=== PATIENT | female | born 1990 | race African-American/Black ===

== ENCOUNTER 2022-05-22 16:19 | Inpatient (IN) ==
[2022-05-22] MEDS ORDERED: OXYTOCIN/LR 20 UNIT/1,000 ML BAG IV ONE (17:09)
[2022-05-22] MEDS ORDERED: CARBOPROST TROMETHAMINE 250 MCG/ML AMP IM PRN (17:09)
[2022-05-22] MEDS ORDERED: ONDANSETRON 4 MG/2 ML VIAL IV PRN (17:09)
[2022-05-22] MEDS ORDERED: miSOPROStoL 200 MCG TABLET RECTAL PRN (17:09)
[2022-05-22] MEDS ORDERED: METHYLERGONOVINE 0.2 MG/1 ML AMP IM PRN (17:09)
[2022-05-22] MEDS ORDERED: MEPERIDINE 50 MG/1 ML VIAL IV PRN (17:09)
[2022-05-22] MEDS ORDERED: BUTORPHANOL 2 MG/ML VIAL IV PRN (17:09)
[2022-05-22] MEDS ORDERED: TRANEXAMIC ACID 1,000 MG in SODIUM CHLORIDE 0.9% 100 ML IV PRN (17:09)
[2022-05-22 17:26] LABS: Basophils % 0.3 % (0.0-0.8); Eosinophils # 0.1 10*3/uL (0.0-0.87); Eosinophils % 0.8 % (0.00-10.9); Hematocrit 37.3 VOL% (35.7-47.0); Hemoglobin 11.8 GM/DL (12.0-16.0); Immature Granulocytes % 0.3 %; Immature Granulocytes Absolute 0.02 #; Lymphocytes # 2.1 10*3/uL (1.4-4.0); Lymphocytes % 28.9 % (21.3-54.2); Mean Corpuscular HGB Conc 31.6 GM/DL (32-36); Mean Corpuscular Volume 85.2 FL (87-102); Mean Platelet Volume 11.2 FL (9.6-12.0); Monocytes # 0.7 10*3/uL (0.11-0.8); Monocytes % 9.3 % (1.7-12.7); Neutrophils % 60.4 % (38.7-73.9); Platelet Count 252 T/CUMM (130-400); Red Blood Count 4.38 MC/CUMM (3.8-5.5); Red Cell Distribution Width 14.3 % (9.3-17.3); White Blood Count 7.2 T/CUMM (4-12)
[2022-05-22 17:28] LABS: Bilirubin,Urine Negative (Negative); Blood, Urine Negative (Negative); Glucose,Urine (UA) Negative (Negative); Ketones,Urine Negative (Negative); Nitrite,Urine Negative (Negative); Protein,Urine Negative (Negative); Urine Appearance Clear (Clear); Urine Color Yellow (Yellow); Urine Specific Gravity 1.015 (1.001-1.035); Urine Urobilinogen 0.2 eU/dL (<2.0)
[2022-05-22 17:30] LABS: Bacteria,Urine Occasional /HPF (Few); Mucus,Urine Occasional /LPF (Occasional); RBC,Urine 1 /HPF (0-4); Squamous Epithelial Cell,Urine Occasional /HPF (0-10)
[2022-05-22] MEDS ORDERED: LABETALOL 200 MG TABLET PO SCH (17:30)
[2022-05-22 17:37] LABS: Protein/Creatinine Ratio,Urine 0.3 RATIO
[2022-05-22 17:39] LABS: Bilirubin,Direct < 0.100 MG/DL (0.0-0.20)
[2022-05-22 17:40] LABS: INR 0.9; PT Patient Result 9.8 SECS (10.1-12.1); Partial Thromboplastin Time 27.3 SECS (23.7-32.9)
[2022-05-22 17:43] LABS: Alanine Aminotransferase 16 U/L (13-56); Alkaline Phosphatase 311 U/L (45-117); Aspartate Amino Transferase 16 U/L (0-37); Bilirubin,Total < 0.39 MG/DL (0.20-1.00); Blood Urea Nitrogen 6 MG/DL (7-18); Calcium 9.1 MG/DL (8.5-10.1); Carbon Dioxide 20 MMOL/L (21-32); Chloride 109 MMOL/L (98-107); Glucose 84 MG/DL (74-106); Osmolality,Calculated 273.5 MOS/KG (273-304); Potassium 4.4 MMOL/L (3.5-5.1); Sodium 139 MMOL/L (136-145); Total Protein 6.8 G/DL (6.4-8.2)
[2022-05-23] MEDS: LACTATED RINGERS 1,000 ML IV SCH ×3 (01:35→07:02)
[2022-05-23] MEDS: LABETALOL 200 MG TABLET PO SCH ×2 (01:35→17:45)
[2022-05-23] MEDS ORDERED: AMPICILLIN INJ 2,000 MG in SODIUM CHLORIDE 0.9% 100 ML IV ONE (01:44)
[2022-05-23] MEDS: OXYTOCIN/LR 20 UNIT/1,000 ML BAG IV SCH ×2 (04:11→16:51)
[2022-05-23] MEDS ORDERED: PROMETHAZINE 25 MG/1 ML VIAL IM PRN (04:22)
[2022-05-23] MEDS ORDERED: fentaNYL 2 MCG/ROPIV 0.2% EPID 100 ML EPIDURAL PRN (04:22)
[2022-05-23] MEDS ORDERED: ePHEDrine 50 MG/ML VIAL IV PRN (04:22)
[2022-05-23] MEDS ORDERED: NALOXONE 0.4 MG/ML VIAL IV PRN (04:22)
[2022-05-23] MEDS ORDERED: hydrOXYzine HCL 25 MG/1 ML VIAL IM PRN (04:22)
[2022-05-23] MEDS ORDERED: diphenhydrAMINE 50 MG/1 ML VIAL IV PRN ×2 (04:22)
[2022-05-23] MEDS ORDERED: CITRIC ACID/SODIUM CITRATE 30 ML UDCUP PO PRN (04:24)
[2022-05-23] MEDS ORDERED: FAMOTIDINE 20 MG/2 ML VIAL IV PRN (04:24)
[2022-05-23] MEDS ORDERED: AMPICILLIN INJ 1,000 MG in SODIUM CHLORIDE 0.9% 100 ML IV SCH (06:30)
[2022-05-23 08:56] LABS: Bacteria,Urine Occasional /HPF (Few); Bilirubin,Urine Negative (Negative); Blood, Urine Trace mg/dL (Negative); Glucose,Urine (UA) Negative (Negative); Ketones,Urine 40 mg/dL (Negative); Mucus,Urine Few /LPF (Occasional); Nitrite,Urine Negative (Negative); Protein,Urine 30 mg/dL (Negative); RBC,Urine 1 /HPF (0-4); Squamous Epithelial Cell,Urine Few /HPF (0-10); Urine Appearance Clear (Clear); Urine Color Yellow (Yellow); Urine Specific Gravity > 1.030 (1.001-1.035); Urine Urobilinogen 0.2 eU/dL (<2.0)
[2022-05-23] MEDS ORDERED: TERBUTALINE 1 MG/1 ML VIAL ONE (10:25)
[2022-05-23] MEDS ORDERED: miSOPROStoL 200 MCG TABLET ONE (12:03)
[2022-05-23] MEDS ORDERED: SODIUM CHLORIDE 0.9% 100 ML IV ONE (12:03)
[2022-05-23] MEDS ORDERED: TRANEXAMIC ACID 1,000 MG/10 ML VIAL ONE (12:03)
[2022-05-23] MEDS ORDERED: CARBOPROST TROMETHAMINE 250 MCG/ML AMP IM ONE (12:03)
[2022-05-23] MEDS ORDERED: OXYTOCIN/LR 20 UNIT/1,000 ML BAG IV ONE ×2 (12:03→20:21)
[2022-05-23] MEDS ORDERED: METHYLERGONOVINE 0.2 MG/1 ML AMP ONE (12:03)
[2022-05-23 13:06] LABS: Cord Arterial Blood HCO3 20.4 MMOL/L
[2022-05-23 13:11] LABS: Cord Venous Blood HCO3 20.9 MMOL/L; Cord Venous Blood PCO2 41.8 MMHG; Cord Venous Blood PO2 31.4
[2022-05-23] MEDS ORDERED: LANOLIN 50% CREAM 0.3 OZ TUBE TOP PRN (20:21)
[2022-05-23] MEDS ORDERED: ACETAMINOPHEN 325 MG TABLET PO PRN (20:21)
[2022-05-23] MEDS ORDERED: RHO(D) IMMUNE GLOBULIN 300 MCG SYRINGE IM ONE (20:21)
[2022-05-23] MEDS ORDERED: HYDROCORTISONE 2.5% RECTAL CREAM 30 GM TUBE TOP PRN (20:21)
[2022-05-23] MEDS ORDERED: BISACODYL 10 MG SUPP RECTAL PRN (20:21)
[2022-05-23] MEDS ORDERED: MEASLES/MUMPS/RUBELLA VACCINE 0.5 ML VIAL SUBCUT ONE (20:21)
[2022-05-23] MEDS ORDERED: DIPH/TET/ACEL PERT BOOSTER VACCINE 0.5 ML VIAL IM ONE (20:21)
[2022-05-23] MEDS ORDERED: IBUPROFEN 800 MG TABLET PO PRN (20:21)
[2022-05-23] MEDS ORDERED: ONDANSETRON 4 MG/2 ML VIAL IV PRN (20:21)
[2022-05-23] MEDS ORDERED: oxyCODONE/ACETAMINOPHEN 5-325 MG TABLET PO PRN ×2 (20:21)
[2022-05-23] MEDS ORDERED: BENZOCAINE 20%/MENTHOL 0.5% SPRAY 56 GM CAN TOP PRN (20:21)
[2022-05-23] MEDS ORDERED: WITCH HAZEL PADS 100/JAR TOP PRN (20:21)
[2022-05-23] MEDS: DOCUSATE SODIUM 100 MG CAPSULE PO SCH (20:48)
[2022-05-24] MEDS: LABETALOL 200 MG TABLET PO SCH ×3 (01:33→17:35)
[2022-05-24 06:12] LABS: Basophils % 0.3 % (0.0-0.8); Eosinophils % 0.3 % (0.00-10.9); Hematocrit 29.2 VOL% (35.7-47.0); Immature Granulocytes % 0.5 %; Immature Granulocytes Absolute 0.06 #; Lymphocytes # 2.5 10*3/uL (1.4-4.0); Lymphocytes % 20.7 % (21.3-54.2); Mean Corpuscular HGB Conc 30.8 GM/DL (32-36); Mean Corpuscular Volume 87.4 FL (87-102); Mean Platelet Volume 10.7 FL (9.6-12.0); Monocytes # 0.9 10*3/uL (0.11-0.8); Monocytes % 7.5 % (1.7-12.7); Neutrophils % 70.7 % (38.7-73.9); Platelet Count 201 T/CUMM (130-400); Red Blood Count 3.34 MC/CUMM (3.8-5.5); Red Cell Distribution Width 14.4 % (9.3-17.3); White Blood Count 11.9 T/CUMM (4-12)
[2022-05-24] MEDS: MULTIVITAMIN (PRENATAL) TABLET PO SCH (08:18)
[2022-05-24] MEDS: DOCUSATE SODIUM 100 MG CAPSULE PO SCH ×2 (08:18→21:03)
[2022-05-25] MEDS: LABETALOL 200 MG TABLET PO SCH ×2 (01:57→11:04)
[2022-05-25 07:20] VITALS: BP 139/69
[2022-05-25] MEDS: DOCUSATE SODIUM 100 MG CAPSULE PO SCH (09:05)
[2022-05-25] MEDS: MULTIVITAMIN (PRENATAL) TABLET PO SCH (09:05)
== END 2022-05-25 11:45 | disposition home or self-care (01) | DRG 807 ==
LOC: N.LDOUT 16:19 → N.LD 16:20 → N.OB 05-23 18:00
PROVIDERS: ADMIT Specialist; ATTEND Specialist